=== PATIENT | male | born 1960 | race Caucasian/White ===

== ENCOUNTER 2017-04-30 00:13 | Outpatient (CLI) | payer MEDICAID | END 2017-04-30 00:14 | disposition critical access hospital (66) | LOC: EMS 00:13 | PROVIDERS: ATTEND Surgery | DX: R55 Syncope and collapse (principal) | CPT/HCPCS: A0425; A0427 ==

== ENCOUNTER 2017-04-30 01:03 | Emergency (ER) | payer BC, MEDICAID ==
--- NOTE | 2017-04-30 01:17 | ED Physician Documentation ---
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 This evening he was laying on the couch and his business proposal rep called and he jumped up off the couch and walked across the room and collapsed part way across the floor. He was unconscious for 30 seconds and then he tried to get up and passed out again. He notes that he usually will get up and stabilize prior to ambulation because he will get light headed and he did not do this today. Review of Systems Constitutional: denies: Fever, Chills, Myalgias, Fatigue Eyes: denies: Decreased vision Ears: denies: Ear pain Nose: denies: Rhinorrhea / runny nose, Congestion Throat: denies: Sore throat Cardiac: denies: Chest pain / pressure, Palpitations Respiratory: denies: Dyspnea, Cough GI: denies: Abdominal Pain, Nausea, Vomiting : denies: Dysuria, Frequency Skin: denies: Rash Musculoskeletal: denies: Neck pain, Back pain Neurologic: reports: Syncope. denies: Generalized weakness, Focal weakness, Numbness, Difficulty speaking, Seizure, Confused, Altered mental status, Headache, Head injury, LOC PD PAST MEDICAL HISTORY - Past Medical History Past Medical History: Yes Cardiovascular: Atrial flutter, Other - Past Surgical History Past Surgical History: No - Allergies Allergies/Adverse Reactions: Allergies Allergy/AdvReac Type Severity Reaction Status Date / Time No Known Drug Allergies Allergy Verified 04/30/17 01:07 - Social History Does the pt smoke?: No Smoking Status: Never smoker Does the pt drink ETOH?: Yes ETOH Use: Wine Does the pt have substance abuse?: Yes Substance Use and Type: Marijuana - Immunizations Immunizations are current?: Yes - POLST Patient has POLST: No PD ED PE NORMAL - Vitals Vital signs reviewed: Yes (normal ) - General General: Alert and oriented X 3, No acute distress, Well developed/nourished - HEENT HEENT: Atraumatic, PERRL (dry mucous membranes), EOMI, Other - Neck Neck: Supple, no meningeal sign, No bony TTP - Cardiac Cardiac: RRR, No murmur - Respiratory Respiratory: No respiratory distress, Clear bilaterally - Abdomen Abdomen: Soft, Non tender - Back Back: No CVA TTP, No spinal TTP - Derm Derm: Normal color, No rash - Extremities Extremities: No deformity, No edema - Neuro Neuro: Alert and oriented X 3, maintenance planning clerk 2-12 intact, No motor deficit, No sensory deficit, Normal speech - Psych Psych: Normal mood, Normal affect Results - Vitals Vitals: Vital Signs - 24 hr 04/30/17 04/30/17 01:04 02:23 Temperature 36.9 C Heart Rate 86 73 Respiratory 20 20 Rate Blood Pressure 130/74 116/87 H O2 Saturation 100 98 Oxygen O2 Source Room air - EKG (time done) 0123 Rate: Rate (enter#) (71) Rhythm: Atrial fibrillation QRS: LVH Compare to prior EKG: Old EKG unavailable Computer interpretation: Agree with computer - Labs Labs: Laboratory Tests 04/30/17 04/30/17 04/30/17 02:02 02:02 02:02 WBC 8.6 RBC 4.33 L Hgb 13.8 L Hct 39.5 L MCV 91.2 MCH 31.8 H MCHC 34.9 RDW 14.0 Plt Count 202 MPV 9.8 Neut # 6.3 Lymph # 1.5 [place] # 0.6 Eos # 0.2 Baso # 0.1 Absolute Nucleated RBC 0.00 Nucleated RBCs 0.0 Sodium 138 Potassium 4.1 Chloride 105 Carbon Dioxide 27 Anion Gap 6.0 BUN 20 Creatinine 1.1 Estimated GFR (MDRD) 69 L Glucose 112 H Calcium 8.5 Total Bilirubin 0.2 AST 24 ALT 24 Alkaline Phosphatase 43 Troponin I < 0.04 Total Protein 6.2 L Albumin 3.9 Globulin 2.3 Albumin/Globulin Ratio 1.7 Lipase 34 Ethyl Alcohol < 5.0 Procedures - IVC sono (time) 0114 Bedside IVC sono: IVC measures (cm) (1.48), IVC collapsed c insp (cm) (0.66), Euvolemia (after one litere saline) PD MEDICAL DECISION MAKING - ED course Complexity details: reviewed results, re-evaluated patient, considered differential, d/w patient, d/w family ED course: 57 y/o male with acute syncope related to mild dehydration and getting up too fast. He has an atrial arrhythmia that he indicates has always been present but he has not heard the term atrial fibrillation or flutter. On his EKG he does have p waves that are conducted and he does have irregular rate and he has extra p waves. He specifically is concerned about not doing more tests than necessary and I will have him follow up with his PMD about this as I believe this is a chronic rhythm and not identified specifically as "new". He has a controlled rate and a normal pressure. He appears to tolerate the rhythm and he gives history of always being careful to not get up too fast. I have recommended he take a baby aspirin per day and follow up with his nursery helper. Departure - Departure Disposition: 01 Home, Self Care Clinical Impression: Syncope due to orthostatic hypotension Condition: Stable Instructions: ED Syncope Vasovagal Follow-Up: Courtney Anderson MD [Physician No Access] - Comments: Today it appears you fainted after getting up too fast. We have identified an irregular rhythm that may be atrial fibrillation and I am recommending you start a baby aspirin per day and follow up with your nursery helper this week.
[2017-04-30 02:23] LABS: BASOPHILS # (AUTO) 0.1 10^3/uL (0.0-0.1); BASOPHILS % (AUTO) 0.7 %; EOSINOPHILS # (AUTO) 0.2 10^3/uL (0.0-0.7); EOSINOPHILS % (AUTO) 1.9 %; HCT - HEMATOCRIT 39.5 % (42.0-52.0); HGB - HEMOGLOBIN 13.8 g/dL (14.0-18.0); LYMPHOCYTES # (AUTO) 1.5 10^3/uL (1.5-3.5); LYMPHOCYTES % (AUTO) 17.1 %; MEAN CORPUSCULAR HEMOGLOBIN 31.8 pg (27.0-31.0); MEAN CORPUSCULAR HGB CONC 34.9 g/dL (32.0-36.0); MEAN CORPUSCULAR VOLUME 91.2 fL (80.0-94.0); MEAN PLATELET VOLUME 9.8 fL (7.4-11.4); MONOCYTES # (AUTO) 0.6 10^3/uL (0.0-1.0); NEUTROPHILS # (AUTO) 6.3 10^3/uL (1.5-6.6); NEUTROPHILS % (AUTO) 73.3 %; RED BLOOD COUNT 4.33 10^6/uL (4.70-6.10); UNCORRECTED WHITE BLOOD COUNT 8.6 x10^3/uL; WHITE BLOOD COUNT 8.6 x10^3/uL (4.8-10.8)
[2017-04-30 02:24] LABS: ALBUMIN/GLOBULIN RATIO 1.7 (1.0-2.2); BILIRUBIN,TOTAL 0.2 mg/dL (0.2-1.0); BUN - BLOOD UREA NITROGEN 20 mg/dL (6-20); CALCIUM 8.5 mg/dL (8.5-10.3); CARBON DIOXIDE - CO2 27 mmol/L (21-32); CHLORIDE 105 mmol/L (101-111); CREATININE 1.1 mg/dL (0.6-1.2); GFR - MDRD 69 (>89); GLUCOSE 112 mg/dL (70-100); LIPASE 34 U/L (22-51); POTASSIUM 4.1 mmol/L (3.5-5.0); SODIUM 138 mmol/L (135-145); TOTAL PROTEIN 6.2 g/dL (6.7-8.2)
[2017-04-30 02:30] VITALS: BP 116/87
== END 2017-04-30 03:05 | disposition home or self-care (01) ==
LOC: ED 01:03
DX: I95.1 Orthostatic hypotension (principal); I48.91 Unspecified atrial fibrillation; R94.31 Abnormal electrocardiogram [ECG] [EKG]
CPT/HCPCS: 36415; 80053; 80320; 83690; 84484; 85025; 93005; 93010; 99283; 99285